=== PATIENT | male | born 1995 | race Asian ===

== ENCOUNTER 2016-12-04 17:14 | Emergency (ER) | payer OTHER ==
[~2016-12-04] VITALS: Ht 177.8 cm; Wt 69.9 kg
[~2016-12-04 17:14] MED LIST: ISOT10CA PO
[2016-12-04 17:15] VITALS: BP 147/79
[2016-12-04] MEDS ORDERED: IBUPROFEN 200 MG TABLET ONE (18:23)
[2016-12-04] MEDS ORDERED: IBUPROFEN 200 MG TABLET PO ONE (18:30)
== END 2016-12-04 19:04 | disposition home or self-care (01) ==
LOC: ED 18:30
DX: S82.832A Other fracture of upper and lower end of left fibula, initial encounter for closed fracture (principal); X50.1XXA Overexertion from prolonged static or awkward postures, initial encounter; Y93.51 Activity, roller skating (inline) and skateboarding; Y99.8 Other external cause status; Y92.89 Other specified places as the place of occurrence of the external cause
CPT/HCPCS: 29515; 99284